=== PATIENT | male | born 1965 | race Caucasian/White ===

== ENCOUNTER → 2016-11-11 | Outpatient (CLI) | payer MEDICARE, OTHER ==
[2014-02-11 08:00] VITALS: BP 108/51
[~2016-11-11] MED LIST: ASPI81TA2 PO; ATOR10TA60 PO; LISI2.5T PO; METF500T4 PO; METO25TA9 PO; NITR0.4T SL; PRAS10TA4 PO; TEST100V2 IM
--- NOTE | 2016-11-12 09:24 | KCIC ---
PROCEDURE MR of the left proximal biceps muscle HISTORY Pulling injury 2 months ago. Proximal biceps tendon pain. TECHNIQUE The routine multiplanar sequences are obtained. COMPARISON None FINDINGS The biceps muscle is intact. No muscle tear, abnormal edema or hematoma is identified. The proximal biceps tendon attachment appears grossly intact but would be better evaluated on a dedicated MRI of the shoulder. Limited visualization of the shoulder does demonstrate a full-thickness tear the rotator cuff involving the supraspinatus tendon. This roughly measures 2 cm AP diameter with 1 cm retraction. Note that the distal biceps tendon attachment is not visualized at the elbow. No evidence of acute bone marrow edema or acute fracture. There is a low signal structure identified within the humeral diaphysis, just distal to the mid point, which measures 16 millimeters long axis. This demonstrates low T1 and T2 signal suggesting calcification. There is no evidence significant marrow edema or aggressive cortical medullary bone destruction. IMPRESSION 1. No evidence of biceps muscle tear or hematoma. 2. Limited visualization at the shoulder does demonstrate at least a moderate size full thickness rotator cuff tear at the supraspinatus tendon. 3. Incidentally noted bone lesion within the humeral shaft, demonstrates nonaggressive features and may represent a benign process such as enchondroma or an old inactive lesion. Correlation with conventional x-rays could be of benefit to further evaluate. If there is any reason for further workup after conventional x-rays, consider bone scan if necessary. Electronically signed by: rT Mack MD (Nov 12, 2016 09:22:26)
== END | disposition home or self-care (01) ==
LOC: KCIC MRI 17:32
PROVIDERS: ATTEND Family Medicine
DX: S46.112A Strain of muscle, fascia and tendon of long head of biceps, left arm, initial encounter (principal); W19.XXXA Unspecified fall, initial encounter; Y93.89 Activity, other specified; Y92.89 Other specified places as the place of occurrence of the external cause; Y99.8 Other external cause status
CPT/HCPCS: 73221

== ENCOUNTER 2016-12-08 05:59 | Day surgery (SDC) | payer OTHER ==
[~2016-12-08] VITALS: Ht 177.8 cm; Wt 83.9 kg
[~2016-12-08 05:59] MED LIST changes: +DIVA500T2 PO; +HYDR25TA PO; +LURA40TA PO; +METF-620 PO; +MIRT30TA3 PO; -PRAS10TA4 PO; +PRAS10TA9 PO
[2016-12-08] MEDS ORDERED: fentaNYL PF VIAL 100 MCG/2 ML VIAL IV PRN ×2 (07:00)
[2016-12-08] MEDS ORDERED: PROCHLORPERAZINE 10 MG/2 ML VIAL. IV PRN (07:00)
[2016-12-08] MEDS ORDERED: ONDANSETRON PF 4 MG/2 ML VIAL. IV PRN (07:00)
[2016-12-08] MEDS ORDERED: LIDOCAINE 1% 1 ML SYRINGE. ID PRN (07:00)
[2016-12-08] MEDS ORDERED: IV RINGERS,LACTATED 1000ML 1,000 ML IV SCH (07:00)
[2016-12-08] MEDS ORDERED: DEXAMETHASONE SOD PHOS 20 MG/5 ML VIAL. ONE (07:15)
[2016-12-08] MEDS ORDERED: PROPOFOL 20 ML IV ONE (07:15)
[2016-12-08] MEDS ORDERED: FAMOTIDINE 20 MG/2 ML VIAL ONE (07:15)
[2016-12-08] MEDS ORDERED: ONDANSETRON PF 4 MG/2 ML VIAL. ONE (07:15)
[2016-12-08] MEDS ORDERED: LIDOCAINE 2% 100 MG/5 ML SYRINGE. ONE (07:15)
[2016-12-08] MEDS ORDERED: ROPIVacaine 0.5% PF 30 ML VIAL. ONE (07:17)
[2016-12-08] MEDS ORDERED: ROCURONIUM 100 MG/10 ML VIAL. ONE (07:18)
[2016-12-08] MEDS ORDERED: fentaNYL PF VIAL 100 MCG/2 ML VIAL ONE (07:18)
[2016-12-08] MEDS ORDERED: MIDAZOLAM HCL/PF 2 MG/2 ML VIAL. ONE (07:18)
[2016-12-08] MEDS ORDERED: EPINEPHrine VIAL 30 MG/30 ML VIAL ONE (07:30)
[2016-12-08] MEDS ORDERED: LIDOCAINE 1% PF 30 ML VIAL. ONE (07:30)
[2016-12-08] MEDS ORDERED: BUPIVACAINE MPF 0.5% 30 ML VIAL. ONE (07:30)
--- NOTE | 2016-12-08 07:41 | DISCH ---
DISCHARGE INSTRUCTIONS Condition on Discharge Condition on Discharge: Stable Activity After Discharge Activity Instructions for Disc: Other, see below Other activity instructions: arm to remain in sling Bathing Instructions: Shower-keep dressing dry Weight Bearing Status after Di: Non weight bearing Diet after Discharge Diet after Discharge: Regular Wound Incision Care Wound/Incision Care: Ice to area for comfort, Keep wound/cast CDI, Change dressing Contacting the [facility] after DC Call your doctor for: Concerns you may have Follow-Up Follow up with: Shaji or Bonifacio in 2 wks CAITIE LEON II, MD December 08, 2016 07:41
--- NOTE | 2016-12-08 07:44 | PDOC ---
BRIEF OPERATIVE NOTE Date: December 08, 2016 Pre-Op Diagnosis L shoulder RTC tear Post-Op Diagnosis same Procedure Performed L shoulder arthroscopic RTC repair Surgeon Shaji Pad Assembler Soraya Anesthesiologist [facility] Anesthesia Type: General, Regional Blood Loss 10mL Complications none CAITIE LEON II, MD December 08, 2016 07:44
[2016-12-08] MEDS ORDERED: ACETAMINOPHEN INTRAVENOUS 100 ML IV ONE (07:59)
[2016-12-08] MEDS ORDERED: NEOSTIGMINE METHYLSULFATE 5 MG/5 ML SYRINGE. ONE (09:06)
[2016-12-08] MEDS ORDERED: GLYCOPYRROLATE 1 MG/5 ML VIAL. ONE (09:06)
[2016-12-08] MEDS ORDERED: SEVOFLURANE 61 TO 120 MINUTES. IH ONE (09:06)
[2016-12-08] MEDS ORDERED: DOCU-27 PO (09:42)
[2016-12-08] MEDS ORDERED: OXYC-323 PO (09:42)
[2016-12-08] MEDS ORDERED: ONDA4TAB10 SL (09:42)
[2016-12-08 10:40] VITALS: BP 120/78
--- NOTE | 2016-12-08 11:16 | OP ---
DATE OF SURGERY: 12/08/2016 SURGEON: Gerardo Leon MD. FREELANCE PATTERNMAKER: Luz Elena Lira. ANESTHESIA: General plus regional nerve block. COMPLICATIONS: None. PREOPERATIVE DIAGNOSIS: Left shoulder rotator cuff tear. POSTOPERATIVE DIAGNOSIS: Left shoulder rotator cuff tear. PROCEDURE PERFORMED: Arthroscopic left shoulder rotator cuff repair. COMPONENTS INSERTED: Two Waddell and Nephew Healicoil 4.5-mm suture anchors. ESTIMATED BLOOD LOSS: 10 mL. REASON FOR PROCEDURE: The patient is a very pleasant 51-year-old gentleman with persistent bilateral shoulder pain and dysfunction whose shoulder pain and weakness is starting to interfere with his ability to work, he installs seamless gutters, and after reviewing the clinical and radiographic evidence including the MRI and failure of conservative therapy such as exercise program and anti-inflammatories, he elected to proceed with a right shoulder injection that we did in my clinic which gave him good relief and arthroscopic left shoulder rotator cuff repair. DESCRIPTION OF PROCEDURE: The patient was greeted in the preoperative area by myself. Correct extremity was marked and verified. He was taken back to the operative suite and antibiotics were started en route. Once in the OR, he was transferred gently supine to the OR table and had successful placement of a regional nerve block followed by general anesthetic from the Anesthesiology team. We then placed a large pad under his hips and set him up in a beach chair position maintaining the C-spine in a neutral position and securing him to the bed. All pressure points were padded. We then proceeded to prep and drape left upper extremity and shoulder girdle in our usual sterile fashion and conducted a standard preoperative timeout. Ioban was used at the periphery. I then palpated and marked the surface anatomy and used the spinal needle to localize the posterosuperior portal and incised skin in accordance with this. I then introduced the blunt arthroscopic trocar into the glenohumeral joint followed by the camera. I then used the spinal needle to localize the anterosuperior portal and incised skin in accordance with this. I then placed a switching stick to dilate the hole followed by my probe and then conducted my diagnostic arthroscopy and noted some minor fraying at the superior and anterosuperior labrum, but the labrum was intact. He had some minor fraying at the biceps tendon. The subscapularis was intact. No loose bodies in subcoracoid or axillary spaces. He had a full-thickness supraspinatus tear, and his supraspinatus demonstrated partial thickness tear. The remainder of the infraspinatus and teres minor was intact. With my camera still in the glenohumeral joint, I then used the spinal needle to localize the lateral portal and incised skin in accordance with this and then introduced a shaver into the glenohumeral joint from this vantage point to debride the rotator cuff tendon. I then debrided the leading edge of the partial thickness infraspinatus tear as well and debrided the footprint down to bone, taking care not to decorticate it. I then withdrew the arthroscopic instrumentation and used the blunt arthroscopic trocar to enter the subacromial space. I then performed a bursectomy with combination of shaver and electrocautery. I then reintroduced the shaver into the subacromial space and debrided the leading edge of the rotator cuff tear. Not much tissue was debrided, and the tendon had a good bounce and felt like it had good tissue quality. I then created accessory anterosuperior and posterolateral portal with spinal needle localization and stab incisions for suture management. I then placed my 2 Healicoil anchors in the footprint and then shuttled all these sutures out through the posterolateral portal. After this, I began shuttling my sutures through in a simple configuration with the [employer]ell and Nephew passing device. I then tied these down from posterior to anterior using arthroscopic knot tying techniques and was happy and then inspected my repair and was happy with the repair and tissue mobilization. There was no gapping at the bone tendon interface with gentle rotation. After this, I removed all loose bony debris and then withdrew the arthroscopic instruments. All counts were reported correct x2. We then closed the portals and stab incisions with simple interrupted 3-0 nylon. The patient's left upper extremity and shoulder was then cleansed and dried, and sterile dressing was applied followed by an abduction pillow sling. He was then laid supine and transferred gently supine to the Recovery Room cart and taken to PACU in stable and extubated condition. Postop plan is nonweightbearing x2 weeks. We will see him back around that time. We will get him started on physical therapy, and I did tell him and his to contact me with any concerns. GERARDO LEON MD DR: Carlitos JOB#: [id number] / [id number] TYRESE
== END 2016-12-08 10:40 | disposition home or self-care (01) ==
LOC: SURG 05:59
PROVIDERS: ATTEND Orthopaedic Surgery Sports Medicine
DX: M75.102 Unspecified rotator cuff tear or rupture of left shoulder, not specified as traumatic (principal); E78.00 Pure hypercholesterolemia, unspecified; I10 Essential (primary) hypertension; E11.9 Type 2 diabetes mellitus without complications; F41.9 Anxiety disorder, unspecified; I25.10 Atherosclerotic heart disease of native coronary artery without angina pectoris
CPT/HCPCS: 29827; 82947; C1782; J0131; J0171; J0690; J1100; J2250; J2405; J2704; J2710; J2795; J3010; J3490; J7120; S0028